=== PATIENT | male | born 1975 | race Caucasian/White ===

== ENCOUNTER 2016-06-02 12:34 | Emergency (ER) | payer OTHER ==
[~2016-06-02] VITALS: Ht 172.7 cm; Wt 104.3 kg
[~2016-06-02 12:34] MED LIST: AMOXICILLIN500 MG PO; ANAPROX DS550 M1 PO; ASPIRIN325 MG PO; BENTYL10 MG PO; CLARITIN-D 21 TABLET PO; CLINDAMYCIN HC300 MG PO; ENDOCET 5-3251 EACH PO; FLOMAX0.4 MG PO; LOPRESSOR50 MG PO; MOTRIN400 MG PO; MOTRIN800 MG PO; MUPIROCIN15 GM TP; NEURONTIN100 MG PO; OMEGA 3 500 SO1 EACH PO; PEN-VEE K,VEET500 MG PO; PEPCID20 MG PO; PERCOCET 5/31 TABLET PO; PRILOSEC20 MG PO; TOPROL XL50 MG PO; TORADOL10 MG PO; ULTRAM50 MG PO; VALIUM5 MG PO
[2016-06-02 15:34] VITALS: BP 128/88
== END 2016-06-02 15:35 | disposition home or self-care (01) ==
LOC: EME 12:34
DX: S40.012A Contusion of left shoulder, initial encounter (principal); V18.0XXA Pedal cycle driver injured in noncollision transport accident in nontraffic accident, initial encounter; Y93.55 Activity, bike riding
CPT/HCPCS: 73030; 99281; 99284

== ENCOUNTER 2016-06-19 16:35 | Emergency (ER) | payer OTHER ==
[~2016-06-19] VITALS: Ht 175.3 cm; Wt 109.0 kg
[2016-06-19] MEDS ORDERED: AMOXICILLIN875 MG PO (17:58)
[2016-06-19] MEDS ORDERED: TRAMADOL HCL50 MG PO (17:58)
[2016-06-19] MEDS ORDERED: MOTRIN600 MG PO (17:58)
[2016-06-19 18:10] VITALS: BP 154/82
== END 2016-06-19 18:11 | disposition home or self-care (01) ==
LOC: EME 16:35
DX: K08.89 Other specified disorders of teeth and supporting structures (principal); K03.81 Cracked tooth; I10 Essential (primary) hypertension; F17.200 Nicotine dependence, unspecified, uncomplicated; Z71.6 Tobacco abuse counseling
CPT/HCPCS: 99281; 99284

== ENCOUNTER 2017-07-24 19:26 | Emergency (ER) | payer OTHER ==
[~2017-07-24] VITALS: Ht 172.7 cm; Wt 104.0 kg
[~2017-07-24 19:26] MED LIST changes: +AMOXICILLIN875 MG PO; +MOTRIN600 MG PO; +TRAMADOL HCL50 MG PO
[2017-07-24 20:24] LABS: HEMATOCRIT 49.2 % (38.0-50.0); HEMOGLOBIN 17.2 G/DL (12.5-16.6); MCH 29.3 PG (29.0-34.0); MCV 83.7 FL (86-99); PLATELET COUNT 236 K/uL (156-360); RBC DIS.WIDTH-CV 12.7 % (11.8-14.6); RBC DIS.WIDTH-SD 38.6 % (39-53); RED BLOOD COUNT 5.88 M/uL (4.00-5.50); WHITE BLOOD COUNT 14.2 K/uL (4.1-10.2)
[2017-07-24 20:42] LABS: ALBUMIN 4.1 g/dL (3.2-4.8)
[2017-07-24 20:43] LABS: CHLORIDE 102 mEq/L (99-109); POTASSIUM 4.9 mEq/L (3.7-5.4); SODIUM 139 mEq/L (136-147)
[2017-07-24 20:45] LABS: GLUCOSE 199 mg/dL (70-99); TOTAL PROTEIN 7.6 g/dL (6.4-8.3)
[2017-07-24 20:47] LABS: TOTAL BILIRUBIN 0.3 mg/dL (0.0-1.0)
[2017-07-24 20:48] LABS: ALKALINE PHOSPHATASE 66 IU/L (3-129)
[2017-07-24 20:49] LABS: CREATININE 1.3 mg/dL (0.6-1.3); GFR ESTIMATE (CALCULATED) > 59 mL/min/ (58.99-99999)
[2017-07-24 20:50] LABS: AST (GOT) 28 IU/L (2-34); UREA NITROGEN (BUN) 28 mg/dL (9-23)
[2017-07-24 20:51] LABS: ALT (GPT) 39 IU/L (3-49)
[2017-07-24 20:52] LABS: LIPASE 30 U/L (1.0-51.0)
[2017-07-24 21:09] LABS: APPEARANCE CLOUDY ((CLEAR)); BILIRUBIN NEGATIVE; BLOOD LARGE; COLOR AMBER ((YELLOW)); GLUCOSE (STRIP) >=500; KETONES NEGATIVE; LEUKOCYTES NEGATIVE; NITRITE NEGATIVE; PROTEIN (STRIP) 100; SPECIFIC GRAVITY 1.032 (1.000-1.030); UROBILINOGEN 0.2 MG/DL (0.2-1.0)
[2017-07-24 21:32] LABS: RED BLOOD CELLS TNTC /HPF (0-5)
[2017-07-24 21:33] LABS: UCUL ADDED? YES
[2017-07-24] MEDS ORDERED: ZOFRAN4 MG PO (21:51)
[2017-07-24] MEDS ORDERED: PERCOCET 5/31 TABLET PO (21:51)
[2017-07-24] MEDS ORDERED: MOTRIN600 MG PO (21:51)
[2017-07-24 22:07] VITALS: BP 148/88
== END 2017-07-24 22:11 | disposition home or self-care (01) ==
LOC: EME 19:26
PROVIDERS: Physician Assistant
DX: N13.2 Hydronephrosis with renal and ureteral calculous obstruction (principal); R73.9 Hyperglycemia, unspecified; Z87.442 Personal history of urinary calculi; I10 Essential (primary) hypertension; F17.200 Nicotine dependence, unspecified, uncomplicated
CPT/HCPCS: 74176; 80053; 81003; 83690; 85027; 87086; 99281; 99283; J1885

== ENCOUNTER 2017-07-28 15:23 | Emergency (ER) | payer OTHER ==
[~2017-07-28] VITALS: Ht 172.7 cm; Wt 104.8 kg
[~2017-07-28 15:23] MED LIST changes: +ZOFRAN4 MG PO
[2017-07-28 16:21] LABS: HEMATOCRIT 47.4 % (38.0-50.0); HEMOGLOBIN 16.3 G/DL (12.5-16.6); MCHC 34.4 G/DL (30.0-36.0); MCV 84.2 FL (86-99); PLATELET COUNT 207 K/uL (156-360); RBC DIS.WIDTH-CV 12.6 % (11.8-14.6); RBC DIS.WIDTH-SD 38.7 % (39-53); RED BLOOD COUNT 5.63 M/uL (4.00-5.50); WHITE BLOOD COUNT 12.3 K/uL (4.1-10.2)
[2017-07-28 16:33] LABS: CHLORIDE 107 mEq/L (99-109); POTASSIUM 4.6 mEq/L (3.7-5.4); SODIUM 140 mEq/L (136-147)
[2017-07-28 16:35] LABS: GLUCOSE 153 mg/dL (70-99)
[2017-07-28 16:39] LABS: GFR ESTIMATE (CALCULATED) > 59 mL/min/ (58.99-99999)
[2017-07-28 16:40] LABS: CREATININE 0.8 mg/dL (0.6-1.3); UREA NITROGEN (BUN) 21 mg/dL (9-23)
[2017-07-28 17:02] LABS: APPEARANCE SL.HAZY ((CLEAR)); BILIRUBIN NEGATIVE; BLOOD NEGATIVE; COLOR YELLOW ((YELLOW)); GLUCOSE (STRIP) >=500; KETONES 5; LEUKOCYTES SMALL; NITRITE NEGATIVE; PROTEIN (STRIP) 30; UROBILINOGEN 0.2 MG/DL (0.2-1.0)
[2017-07-28 17:12] LABS: BACTERIA NONE SEEN /HPF; CALCIUM OXALATE CRYSTALS 3+ /HPF; EPITHELIAL CELLS RARE /HPF; MUCUS 1+ /LPF; RED BLOOD CELLS 15-20 /HPF (0-5); UCUL ADDED? NO; WHITE BLOOD CELLS 0-5 /HPF (0-5)
[2017-07-28] MEDS ORDERED: CIPRO500 MG PO (18:52)
[2017-07-28] MEDS ORDERED: FLOMAX0.4 MG PO (19:01)
[2017-07-28 19:06] VITALS: BP 123/82
== END 2017-07-28 19:07 | disposition home or self-care (01) ==
LOC: EME 15:23
DX: N13.2 Hydronephrosis with renal and ureteral calculous obstruction (principal); I10 Essential (primary) hypertension; Z87.442 Personal history of urinary calculi; F17.200 Nicotine dependence, unspecified, uncomplicated
CPT/HCPCS: 74176; 80048; 81003; 85027; 99281; 99284